=== PATIENT | male | born 1950 | race Caucasian/White ===

== ENCOUNTER 2017-07-14 10:40 | Day surgery (SDC) | payer OTHER ==
[~2017-07-14] VITALS: Ht 167.6 cm; Wt 86.2 kg
[~2017-07-14 10:40] MED LIST: ASPIRIN81 M2 PO; ATORVASTATIN CA40 MG PO; CLOPIDOGREL75 MG PO; ENDOCET 10-3251 EACH PO; GABAPENTIN600 MG PO; KEPPRA750 MG PO; LEVETIRACETAM500 MG PO; LIPITOR40 MG PO; LISINOPRIL5 MG PO; MELOXICAM15 MG PO; METOPROLOL SUCC50 MG PO; MOBIC15 MG PO; NEURONTIN600 MG PO; NEXIUM20 MG PO; NICOTINE PATCH1 EAC2 TD; OXYCODONE-APAP1 EACH PO; PLAVIX75 MG PO; PREDNISONE20 MG PO; RANEXA1000 MG PO; TOPROL XL50 MG PO; ZESTRIL5 MG PO
[2017-07-14 11:20] VITALS: BP 177/88
[2017-07-14 15:30] VITALS: BP 192/84
[2017-07-14 16:22] VITALS: BP 169/79
== END 2017-07-14 16:40 | disposition home or self-care (01) ==
LOC: SDC 10:40
DX: G56.01 Carpal tunnel syndrome, right upper limb (principal); G56.21 Lesion of ulnar nerve, right upper limb; I10 Essential (primary) hypertension; J44.9 Chronic obstructive pulmonary disease, unspecified; G40.909 Epilepsy, unspecified, not intractable, without status epilepticus; I25.2 Old myocardial infarction; Z86.73 Personal history of transient ischemic attack (TIA), and cerebral infarction without residual deficits; Z79.02 Long term (current) use of antithrombotics/antiplatelets; Z79.82 Long term (current) use of aspirin; Z95.1 Presence of aortocoronary bypass graft; F17.200 Nicotine dependence, unspecified, uncomplicated
CPT/HCPCS: J0360; J2175; J2250; J2405; J2765; J3010; S0020

== ENCOUNTER 2017-08-29 18:33 | Emergency (ER) | payer OTHER ==
[~2017-08-29] VITALS: Ht 175.3 cm; Wt 81.2 kg
[2017-08-29 19:19] LABS: HEMATOCRIT 43.9 % (38.0-50.0); HEMOGLOBIN 14.8 G/DL (12.5-16.6); MCH 29.7 PG (29.0-34.0); MCHC 33.7 G/DL (30.0-36.0); MCV 88.2 FL (86-99); PLATELET COUNT 142 K/uL (156-360); RBC DIS.WIDTH-CV 13.5 % (11.8-14.6); RBC DIS.WIDTH-SD 44.3 % (39-53); RED BLOOD COUNT 4.98 M/uL (4.00-5.50); WHITE BLOOD COUNT 5.5 K/uL (4.1-10.2)
[2017-08-29 19:31] LABS: CHLORIDE 101 mEq/L (99-109); POTASSIUM 3.8 mEq/L (3.7-5.4); SODIUM 137 mEq/L (136-147)
[2017-08-29 19:32] LABS: GLUCOSE 105 mg/dL (70-99)
[2017-08-29 19:36] LABS: GFR ESTIMATE (CALCULATED) > 59 mL/min/ (58.99-99999)
[2017-08-29 19:37] LABS: UREA NITROGEN (BUN) 16 mg/dL (9-23)
[2017-08-29 19:43] LABS: TROP-I INTERPRETATION NEGATIVE; TROPONIN-I 0.01 ng/mL (0.0-0.30)
[2017-08-29 21:36] LABS: TROP-I INTERPRETATION NEGATIVE; TROPONIN-I 0.02 ng/mL (0.0-0.30)
[2017-08-29] MEDS ORDERED: TAMIFLU75 MG PO (22:21)
[2017-08-29 22:36] VITALS: BP 172/92
== END 2017-08-29 22:52 | disposition home or self-care (01) ==
LOC: EME 18:33
PROVIDERS: Physician Assistant
DX: J10.1 Influenza due to other identified influenza virus with other respiratory manifestations (principal); I11.0 Hypertensive heart disease with heart failure; I50.9 Heart failure, unspecified; J44.9 Chronic obstructive pulmonary disease, unspecified; I25.2 Old myocardial infarction; I71.9 Aortic aneurysm of unspecified site, without rupture; F17.200 Nicotine dependence, unspecified, uncomplicated; Z79.02 Long term (current) use of antithrombotics/antiplatelets; Z79.82 Long term (current) use of aspirin; Z95.1 Presence of aortocoronary bypass graft; Z86.73 Personal history of transient ischemic attack (TIA), and cerebral infarction without residual deficits; Z85.828 Personal history of other malignant neoplasm of skin
CPT/HCPCS: 71046; 80048; 83605; 84484; 85027; 87502; 93005; 99281; 99285

== ENCOUNTER 2017-12-30 14:37 | Emergency (ER) | payer OTHER ==
[~2017-12-30] VITALS: Ht 172.7 cm; Wt 86.2 kg
[~2017-12-30 14:37] MED LIST changes: +TAMIFLU75 MG PO
[2017-12-30 17:59] VITALS: BP 185/85
== END 2017-12-30 18:25 | disposition home or self-care (01) ==
LOC: EME 14:37
DX: S16.1XXA Strain of muscle, fascia and tendon at neck level, initial encounter (principal); V49.40XA Driver injured in collision with unspecified motor vehicles in traffic accident, initial encounter; Y92.410 Unspecified street and highway as the place of occurrence of the external cause; J44.9 Chronic obstructive pulmonary disease, unspecified; I11.0 Hypertensive heart disease with heart failure; I50.9 Heart failure, unspecified; R56.9 Unspecified convulsions; I25.2 Old myocardial infarction; Z95.1 Presence of aortocoronary bypass graft; Z86.73 Personal history of transient ischemic attack (TIA), and cerebral infarction without residual deficits; Z85.828 Personal history of other malignant neoplasm of skin; F17.200 Nicotine dependence, unspecified, uncomplicated
CPT/HCPCS: 72040; 99281; 99284